=== PATIENT | female | born 1955 | race Caucasian/White ===

== ENCOUNTER → 2025-03-14 07:45 | Outpatient (REF) | payer MEDICARE, OTHER, SELFPAY ==
--- NOTE | 2025-03-14 14:19 | OID.BR.INTR ---
AGNIESZKAD Breast Navigator - Initial
- -
Date of Contact: 03/14/25
Met with patient. Patient given written information on navigator service available at [facility]. Will follow up as needed per protocol.
== END ==
LOC: WDC 07:45
PROVIDERS: ATTENDING PHYSICIAN Internal Medicine
DX: N63.20 Unspecified lump in the left breast, unspecified quadrant (principal); N63.22 Unspecified lump in the left breast, upper inner quadrant
CPT/HCPCS: 88305; 19083; 88341; 88342; 88360; A4648